=== PATIENT | male | born 1985 | race African-American/Black ===

== ENCOUNTER 2016-08-20 10:06 | Emergency (ER) | payer OTHER ==
[~2016-08-20] VITALS: Ht 180.3 cm; Wt 123.0 kg
[2016-08-20 10:17] VITALS: BP 150/98; PULSE 81; RESP 16; TEMP 98.5; O2SAT 99
[2016-08-20] MEDS ORDERED: LISI-515 PO (10:20)
--- NOTE | 2016-08-20 10:46 | PD ---
HPI Chief Complaint: Musculoskeletal Complaint Time Seen by Provider: 10:41 Travel History International Travel<30 days: No Contact w/Intl Traveler<30days: No Traveled to known affect area: No History of Present Illness HPI 31-year-old male complains of right ankle and right foot pain. Patient played basketball 2 days ago and started having pain subsequently. Patient was seen at local urgent care center 2 days ago and had x-ray done at that time. Patient was told that the x-ray was normal. Patient has persistent pain and swelling on the medial aspect of the right ankle with pain radiation to the medial aspect and plantar aspect of the right foot. Patient denies any other injury. On a scale of 1-10 the pain is a 7. PFSH Past Medical History Diminished Hearing: No Hypertension: Yes Influenza Vaccination: No Past Surgical History Surgical History: No Previous Surgery Social History Alcohol Use: Yes (OCC) Tobacco Use: No Substance Use: No Allergies-Medications (Allergen,Severity, Reaction): Coded Allergies: Motrin (Verified Allergy, Severe, EYES SWELL, 08/20/16) Penicillin (Verified Allergy, Unknown, TOLD CHILD, 08/20/16) Reported Meds & Prescriptions Reported Meds & Active Scripts Active Reported Lisinopril 20 Mg Tab 20 Mg PO DAILY Review of Systems General / Constitutional: No: Fever Eyes: No: Visual changes HENT: No: Headaches Cardiovascular: No: Chest Pain or Discomfort Respiratory: No: Shortness of Breath Gastrointestinal: No: Abdominal Pain Genitourinary: No: Dysuria Musculoskeletal: Positive: Pain Skin: No Rash Neurologic: No: Weakness Psychiatric: No: Depression Endocrine: No: Polydipsia Hematologic/Lymphatic: No: Easy Bruising Physical Exam Narrative GENERAL: Well-nourished, well-developed patient. SKIN: Focused skin assessment warm/dry. HEAD: Normocephalic. EYES: No scleral icterus. No injection or drainage. NECK: Supple, trachea midline. No JVD or lymphadenopathy. CARDIOVASCULAR: Regular rate and rhythm without murmurs, gallops, or rubs. RESPIRATORY: Breath sounds equal bilaterally. No accessory muscle use. GASTROINTESTINAL: Abdomen soft, non-tender, nondistended. MUSCULOSKELETAL: No cyanosis, or edema. BACK: Nontender without obvious deformity. No CVA tenderness. Patient has soft tissue swelling with tenderness posterior to the medial malleolus of the right ankle with tenderness but aspect the right foot and plantar aspect the right foot. Data Data Last Documented VS Vital Signs Date Time Temp Pulse Resp B/P Pulse Ox O2 Delivery O2 Flow Rate FiO2 08/20/16 10:17 98.5 81 16 150/98 99 Orders Foot, Complete ([id number]) (08/20/16 ) Ankle, Complete ([id number]) (08/20/16 10:41) MDM Medical Decision Making Medical Screen Exam Complete: Yes Emergency Medical Condition: Yes Interpretation(s) Last Impressions Ankle X-Ray 08/20/16 1041 Signed Impressions: Service Date/Time: July 10:40 - CONCLUSION: Unremarkable examination of the right ankle. 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 Minimal great toe MTP joint osteoarthritis. Small Achilles calcaneal spur. Luis F Greenberg MD Differential Diagnosis Differential diagnosis includes sprain, fracture, dislocation. Narrative Course 31-year-old male with right ankle right foot injury. Posterior short-leg splint and crutches right leg Diagnosis Primary Impression: Right ankle sprain Qualified Code: S93.411A - Sprain of calcaneofibular ligament of right ankle, initial encounter Additional Impression: Right foot sprain Qualified Code: S93.601A - Right foot sprain, initial encounter Patient Instructions: General Instructions Additional Instructions: Take medications as needed for pain. Follow-up with orthopedist. Med/Other Pt SpecificInfo: Prescription(s) given Scripts Tramadol (Ultram)50 Mg Tab50 Mg PO Q6H PRN (PAIN) #30 TAB Prov:Mathew Ward MD 08/20/16 Disposition: 01 DISCHARGE HOME Condition: Stable Mathew Ward MD Aug 20, 2016 10:45
--- NOTE | 2016-08-20 11:16 | RADHPO ---
EXAM DATE/TIME: 08/20/2016 10:40 [facility] COMPARISON: No previous studies available for comparison. INDICATIONS : Right ankle and foot pain radiating down medial side. MEDICAL HISTORY : None. SURGICAL HISTORY : None. ENCOUNTER: Initial ACUITY: 3 days PAIN SCORE: 7/10 LOCATION: Right ankle. FINDINGS: Three view exam was performed of the right ankle. The bony structures are in normal alignment. No e vidence of fracture, dislocation, or soft tissue swelling. The ankle mortise is intact. No radiopaq ue foreign bodies are seen. Bony mineralization is normal. CONCLUSION: Unremarkable examination of the right ankle. Aneslmo Blevins Jr., MD on August 20, 2016 at 11:13 Board Certified Radiologist. This report was verified electronically.
--- NOTE | 2016-08-20 11:25 | RADHPO ---
EXAM DATE/TIME: 08/20/2016 10:43 [facility] COMPARISON: No previous studies available for comparison. INDICATIONS : Right foot pain running down medial side of foot into heel. MEDICAL HISTORY : None. SURGICAL HISTORY : None. ENCOUNTER: Initial ACUITY: 3 days PAIN SCORE: 7/10 LOCATION: Right foot. FINDINGS: 3 views of the right foot. Small Achilles calcaneal spur. Bipartite medial sesamoid. Mild osteoarthri tic findings of the great toe metatarsophalangeal joint and mild to moderate osteoarthritic findings of the great toe tarsometatarsal joint. 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 Minimal great toe MTP joint osteoarthritis . Small Achilles calcaneal spur. Luis F Greenberg MD on August 20, 2016 at 11:22 Board Certified Radiologist. This report was verified electronically.
[2016-08-20] MEDS ORDERED: ULTR50TA5 PO (11:46)
== END 2016-08-20 12:19 | disposition home or self-care (01) ==
LOC: PHEFT 10:06
DX: S93.411A Sprain of calcaneofibular ligament of right ankle, initial encounter (principal); S93.601A Unspecified sprain of right foot, initial encounter; X58.XXXA Exposure to other specified factors, initial encounter; Y93.67 Activity, basketball
CPT/HCPCS: 29515; 73610; 73630; 99283; E0113